=== PATIENT | male | born 1990 | race Caucasian/White ===

== ENCOUNTER 2023-02-24 12:19 | Emergency (ER) | payer OTHER ==
[2023-02-24] MEDS ORDERED: KETOROLAC 30 MG/ML INJ ONE (12:41)
--- NOTE | 2023-02-24 13:59 | RAD REPORT ---
EXAM DESCRIPTION: RAD -Hand Left 3 View - 02/24/2023 1:52 pm CLINICAL HISTORY: Left hand pain status post injury FINDINGS: No fracture or dislocation is seen.
--- NOTE | 2023-02-24 14:01 | ER ---
Nurse's Notes [facility] Name: Hai Angulo Age: 32 yrs Sex: Male : 1990 Arrival Date: 02/24/2023 Time: 12:19 Bed 19 Private MD: Diagnosis: Pain in left hand Presentation: 02/24 12:21 Chief complaint: Patient states: left hand pain after punching metal bars. Coronavirus tm6 screen: Vaccine status: Patient reports being unvaccinated. Ebola Screen: Patient negative for fever greater than or equal to 101.5 degrees Fahrenheit, and additional compatible Ebola Virus Disease symptoms Patient denies exposure to infectious person. Patient denies travel to an Ebola-affected area in the 21 days before illness onset. No symptoms or risks identified at this time. Initial Sepsis Screen: Does the patient meet any 2 criteria? No. Patient's initial sepsis screen is negative. Does the patient have a suspected source of infection? No. Patient's initial sepsis screen is negative. Risk Assessment: Do you want to hurt yourself or someone else? Patient reports no desire to harm self or others. Onset of symptoms was February 24, 2023. 12:21 Method Of Arrival: Law Enforcement: [place] [employer] tm6 12:21 Acuity: PARAMJIT 3 tm6 Triage Assessment: 12:23 General: Appears in no apparent distress. Behavior is calm, cooperative, appropriate tm6 for age. Pain: Complains of pain in right hand Pain currently is 7 out of 10 on a pain scale. EENT: No signs and/or symptoms were reported regarding the EENT system. Neuro: Level of Consciousness is awake, alert, obeys commands, Oriented to person, place, time, situation. Cardiovascular: Capillary refill < 3 seconds Patient's skin is warm and dry. Respiratory: Airway is patent Respiratory effort is even, unlabored, Respiratory pattern is regular, symmetrical. GI: Abdomen is flat, non-distended. : No signs and/or symptoms were reported regarding the genitourinary system. Derm: No signs and/or symptoms reported regarding the dermatologic system. Musculoskeletal: Reports pain in right hand. Historical: - Allergies: 12:23 No Known Allergies; tm6 - PMHx: 12:23 Depressive disorder; Seizure; tm6 - Immunization history:: Adult Immunizations up to date. - Social history:: Smoking status: Patient denies any tobacco usage or history of. Patient/guardian denies using alcohol. Screenin:25 [facility] ED Fall Risk Assessment (Adult) History of falling in the last 3 months, tm6 including since admission No falls in past 3 months (0 pts). Abuse screen: Denies threats or abuse. Denies injuries from another. Nutritional screening: No deficits noted. Tuberculosis screening: No symptoms or risk factors identified. Assessment: 12:25 Reassessment: see triage assessment. tm6 13:26 Reassessment: Patient appears in no apparent distress at this time. tm6 14:07 Reassessment: Patient appears in no apparent distress at this time. Patient and/or tm6 family updated on plan of care and expected duration. Pain level reassessed. Vital Signs: 12:21 BP 144 / 79; Pulse 90; Resp 17; Temp 97.9(TE); Pulse Ox 100% ; Weight 97.98 kg; Height tm6 6 ft. 2 in. ; Pain 7/10; 13:25 BP 125 / 73; Pulse 71; Pulse Ox 99% ; tm6 12:21 Body Mass Index 27.73 (97.98 kg, 187.96 cm) tm6 12:21 Pain Scale: Adult tm6 ED Course: 12:20 Patient arrived in ED. tm6 12:21 [facility] Uriarte [facility]C [facility] kb 12:21 Kiko Fatima MD is Attending Physician. kb 12:21 Erickson Shell RN is Primary Nurse. tm6 12:23 Triage completed. tm6 12:25 Patient has correct armband on for positive identification. Bed in low position. Side tm6 rails up X2. Security at bedside. [employer] with patient. Provided Education on: need for V/S monitoring. Client placed on continuous cardiac and pulse oximetry monitoring. NIBP monitoring applied. 12:25 No provider procedures requiring assistance completed. tm6 13:54 Hand Left 3 View XRAY In Process Unspecified. EDMS 14:08 Arm band placed on right wrist. tm6 14:08 Patient did not have IV access during this emergency room visit. tm6 Administered Medications: 12:29 Drug: Ketorolac IM 30 mg IM once Route: IM; Site: left deltoid; tm6 Medication: 12:25 VIS not applicable for this client. tm6 Outcome: 14:01 Discharge ordered by MD. thakur 14:08 Discharged to Law Enforcement tm6 14:08 Condition: stable 14:08 Discharge instructions given to patient, Instructed on discharge instructions, Demonstrated understanding of instructions, 14:09 Patient left the ED. tm6 Signatures: Dispatcher [employer] Bronwyn Funes FNP-C FNP-Ckb Masterson, Tawney RN RN tm6
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
[2023-02-24 14:18] VITALS: TEMP 97.9
[2023-02-24 14:19] VITALS: BP 125/73; O2SAT 99
== END 2023-02-24 14:09 | disposition home or self-care (01) ==
LOC: ER 12:19
DX: M79.642 Pain in left hand (principal)
CPT/HCPCS: 96372; 99285